=== PATIENT | female | born 1960 | race Caucasian/White ===

== ENCOUNTER 2016-08-07 14:34 | Emergency (ER) | payer OTHER ==
[2016-08-07 14:42] VITALS: BP 140/84; PULSE 82; TEMP 98; BMI 15.4
--- NOTE | 2016-08-07 14:45 | PDOC ---
History of Present Illness - General Chief Complaint: Hematuria Stated Complaint: BLOOD IN URINE Time Seen by Provider: 08/07/16 14:44 History Source: Patient Exam Limitations: No Limitations - History of Present Illness Travel History: No Initial Comments: 08/07/16 15:12 Patient here with complaints of frequency, burning, and noted blood in urine since this morning. Has had urinary tract infections the past but never with any bleeding. Denies fever, nausea vomiting, denies any back pain. Timing/Duration: reports: constant, getting worse Quality: reports: mild, moderate Abdominal Pain Onset Location: reports: generalized abdomen Pain Radiation: reports: no radiation Past History - Travel Traveled outside of the country in the last 30 days: No Close contact w/someone who was outside of country & ill: No - Past Medical History Allergies/Adverse Reactions: Allergies Allergy/AdvReac Type Severity Reaction Status Date / Time Iodinated Contrast Media - Allergy Verified 08/07/16 14:42 Oral and [Iodinated Contrast Media - IV Dye] IV CONTRAST FOR CT Allergy Unknown Hives Uncoded 08/07/16 14:42 Home Medications: Ambulatory Orders Omeprazole [Prilosec (RX)] 40 mg PO DAILY #30 capsule. 06/05/14 Meclizine HCl [Antivert -] 25 mg PO TID #21 tablet 09/21/14 Ondansetron [Zofran Odt -] 4 mg SL TID #21 od.tablet 09/21/14 Nitrofurantoin Macrocrystal [Macrodantin -] 100 mg PO BID #14 capsule 08/07/16 Phenazopyridine HCl [Pyridium -] 200 mg PO ONCE #10 tablet 08/07/16 GI Disorders: Yes (GERD, hernia, IBS, acid reflux, LACTOSE INTOLERENT) Psychiatric Problems: Yes (depression, axniety) Suicide Attempt (Hx): No - Psycho/Social/Smoking Cessation Hx Anxiety: Yes Suicidal Ideation: No Smoking Status: Yes Smoking History: Former smoker Have you smoked in the past 12 months: No Number of Cigarettes Smoked Daily: 0 If you are a former smoker, when did you quit?: 26 YRS Information on smoking cessation initiated: No Hx Alcohol Use: No Drug/Substance Use Hx: No Substance Use Type: None Review of Systems - Review of Systems Able to Perform ROS?: Yes Is the patient limited Thai proficient: Yes Constitutional: Yes: Symptoms Reported, See HPI, Malaise. No: Fever HEENTM: Yes: See HPI. No: Symptoms Reported ABD/GI: Yes: Symptoms Reported, See HPI : Yes: Symptoms Reported, See HPI, Dysuria, Frequency, Hematuria Musculoskeletal: Yes: Symptoms Reported All Other Systems: Reviewed and Negative *Physical Exam - Vital Signs Last Vital Signs Temp Pulse Resp BP Pulse Ox 98.0 F 82 20 140/84 98 08/07/16 14:37 08/07/16 14:37 08/07/16 14:37 08/07/16 14:37 08/07/16 14:37 - Physical Exam General Appearance: Yes: Nourished, Appropriately Dressed, Apparent Distress, Mild Distress HEENT: positive: NAT, Normal ENT Inspection, TMs Normal, Pharynx Normal Neck: positive: Tender, Supple Respiratory/Chest: positive: Lungs Clear, Normal Breath Sounds Gastrointestinal/Abdominal: positive: Normal Bowel Sounds, Tender (mild suprapubic tenderness, no rebound or guarding), Soft. negative: Distended, Guarding, Rebound Musculoskeletal: positive: Normal Inspection. negative: CVA Tenderness Extremity: positive: Normal Inspection, Normal Range of Motion Integumentary: positive: Normal Color, Dry, Warm, Pale Neurologic: positive: laryngologist II-XII NML intact, Fully Oriented, Alert, Normal Mood/ Affect, Normal Response, Motor Strength 5/5 Progress Note - Progress Note Progress Note: Urinary tract infection, will treat with Macrobid and Pyridium *DC/Admit/Observation/Transfer Diagnosis at time of Disposition: Urinary tract infection Qualifiers: Urinary tract infection type: acute cystitis Hematuria presence: with hematuria Qualified Code(s): N30.01 - Acute cystitis with hematuria - Discharge Dispostion Disposition: HOME Condition at time of disposition: Stable Admit: No - Referrals Referrals: Jordan Graf MD [Primary Care Provider] - - Patient Instructions Printed Discharge Instructions: DI for Urinary Tract Infection (UTI) Additional Instructions: Rest, drink lots of fluids: Teas, water, soups Avoid contact with others until fevers and symptoms resolved Lots of handwashing and good hygiene Continue [id number] medications for symptomatic relief Tylenol or Motrin for fever and pain Continue all of antibiotics until completed Followup with private physician in one week for repeat urinalysis/reevaluation Return to emergency department for worsened symptoms, fevers, dehydration
[2016-08-07 15:03] LABS: URINE APPEARANCE CLOUDY; URINE BILIRUBIN NEGATIVE (NEGATIVE); URINE COLOR RED; URINE GLUCOSE (UA) NEGATIVE (NEGATIVE); URINE KETONE NEGATIVE (NEGATIVE); URINE NITRITE NEGATIVE (NEGATIVE); URINE UROBILINOGEN NEGATIVE E.U./dl (0.2-1.0)
[2016-08-07 15:05] LABS: URINE BLOOD 3+ (NEGATIVE); URINE LEUK ESTERASE 3+ (NEGATIVE); URINE PROTEIN 2+ (NEGATIVE)
[2016-08-07 15:07] LABS: URINE MUCUS RARE; URINE RBC 1167 /hpf (0-3); URINE WBC 485 /hpf (3-5)
[2016-08-07] MEDS ORDERED: PHENAZOPYRIDINE HCL 100 MG TABLET (FP) PO ONE (15:14)
[2016-08-07] MEDS ORDERED: NITROFURANTOIN MACROCRYSTAL 50 MG CAPSULE (FP) PO SCH (15:15)
[2016-08-07] MEDS ORDERED: NITROFURANTOIN MACROCRYSTAL 50 MG CAPSULE (FP) ONE (15:21)
[2016-08-07] MEDS ORDERED: PHENAZOPYRIDINE HCL 100 MG TABLET (FP) ONE (15:21)
== END 2016-08-07 15:24 | disposition home or self-care (01) ==
LOC: JERFT 14:34
DX: N30.01 Acute cystitis with hematuria (principal)
CPT/HCPCS: 81003; 81015; 87086; 87186; 99281-25